=== PATIENT | female | born 1985 | race Caucasian/White ===

== ENCOUNTER 2020-05-06 13:40 | Outpatient (CLI) | payer OTHER, SELFPAY ==
[2020-05-06 14:37] LABS: Beta HCG Quantitative < 2.39 mIU/ML
== END 2020-05-06 13:41 | disposition home or self-care (01) ==
PROVIDERS: PCP Physician Assistant
DX: N91.2 Amenorrhea, unspecified (principal)
CPT/HCPCS: 36415; 84702

== ENCOUNTER 2024-05-14 09:52 | Outpatient (CLI) | payer BC, SELFPAY ==
--- NOTE | 2024-05-14 10:00 | PC.NURSE ---
In- 1000 Out- 1027 Reason for visit: shallow latch, sore nipples, nipple shield questions History: Mother has a 3 year old daughter that she successfully breastfed. She did have some nipple tenderness initially with her first baby that resolved on its own. This baby seemed to have a good latch initially without pain, but after mom's milk came in and her breasts became firm, has struggled to maintain a deep latch and mom is having significant nipple pain. Mom's nipples are intact but reddened. There is no bleeding or blistering. Baby's private equity associate suggested trying a nipple shield and mother was unsure about using one. History: Baby was term at 39 weeks. He hasn't had any issues with weight or jaundice. He has a copious number of yellow seedy stools daily. He is voiding many times each day and is almost back at weight. Mom does say that infant sometimes doesn't empty her breast at a feeding and she pumps afterwards. She sometimes gives a bottle of pumped milk or formula after a if seems unsatisfied. Observations: opened with a wide gape and latched appropriately but quickly slipped to the nipple and had a shallow and painful latch; encouraged mother to pump with her hands free pump for a few minutes to stimulate her letdown and soften the tissue around the nipple and areola; after pumping for 2 minutes, mother latched infant again and he was able to maintain a deeper latch; we worked with making sure his lips were not rolled in, and we repositioned so that he had good alignment; mother felt that the latch was more comfortable and she could see how baby was maintaining the deep latch with the softer breast tissue; mother works great with baby and knows how to get an appropriate latch weight: 8 lbs 12 oz, was almost back to weight at his last appointment Plan of Care: We discussed the risks and benefits of a nipple shield and decided it was not needed once we softened the breast to help baby latch. Educated on not pumping too much and stimulating too much milk production. We discussed pumping just to comfort as needed. Mother says she pumps once or twice a day but that she can produce as much as 8 oz at a time. We discussed when she is preparing to feed that she could put on her hands free pump while she wakes baby and changes his diaper, and then when she is ready to latch, the breast should be softened by those few minutes of pumping; mother agrees with this plan. Follow up plans: Mother has the team contact information if she needs any further assistance; she seems confident about trying the pumping or hand expressing prior to feeding to assist with the deep latch. We discussed what to do if the nipple pain continues, such as calling to make another appointment or trying a nipple shield to prevent so much nipple pain (although we talked about how the shield can cause nipple damage if is not correctly latched). We discussed nipple care, air drying, applying breastmilk after feeds and always using clean hands. Mother agrees to try this plan and call for further assistance as needed.
== END 2024-05-14 09:53 | disposition home or self-care (01) ==
LOC: ANHOBOP 09:55
PROVIDERS: PCP Physician Assistant; Visit Provider Pediatrics
DX: N64.4 Mastodynia (principal)
CPT/HCPCS: 99202; G0463